=== PATIENT | female | born 1990 | race African-American/Black ===

== ENCOUNTER 2020-03-20 15:40 | Emergency (ER) | payer OTHER ==
[~2020-03-20] VITALS: Ht 167.6 cm; Wt 96.0 kg
--- NOTE | 2020-03-20 15:58 | PHYS DOC ---
Past History Past Medical History: No Pertinent History Additional Past Medical Histor: Asthma as a child Alcohol Use: Occasionally General Adult EDM: Chief Complaint: CHEST PAIN HPI: HPI: 29-year-old female presents to the ER with complaint of chest pain that is mostly with inspiration. This has been ongoing since yesterday morning. She states that she occasionally has a sensation of shortness of breath as well. Her pain is currently 5/10 and no medications have been given prior to arrival. She went to urgent care and was sent to the ER for further evaluation. She denies cough, fever, exposure to sick contacts. Reports a history of asthma as a child but no difficulty since that time. Review of Systems: Review of Systems: All other systems negative except as documented in HPI. Heart Score: HEART Score for Chest Pain: HEART Score for Chest Pain Response (Comments) Value History Slighlty/Non-Suspicious 0 ECG Normal 0 Age < 45 0 Risk Factors No Risk Factors 0 Troponin < Normal Limit 0 Total 0 Risk Factors: Risk Factors: DM, Current or recent (<one month) smoker, HTN, HLP, family history of CAD, obesity. Risk Scores: Score 0 - 3: 2.5% MACE over next 6 weeks - Discharge Home Score 4 - 6: 20.3% MACE over next 6 weeks - Admit for Clinical Observation Score 7 - 10: 72.7% MACE over next 6 weeks - Early Invasive Strategies Allergies: Allergies: Allergies Coded Allergies Type Severity Reaction Last Updated Verified shellfish derived Allergy Intermediate 03/20/20 Yes Physical Exam: PE: Constitutional: Well developed, well nourished, no acute distress, non-toxic appearance. [] HENT: Normocephalic, atraumatic, bilateral external ears normal, oropharynx moist, no oral exudates, nose normal. [] Eyes: PERRLA, EOMI, conjunctiva normal, no discharge. [] Neck: Normal range of motion, no tenderness, supple, no stridor. [] Cardiovascular:Heart rate regular rhythm, no murmur [] Lungs & Thorax: Bilateral breath sounds clear to auscultation, no reproducible chest tenderness Abdomen: Bowel sounds normal, soft, no tenderness, no masses, no pulsatile masses. [] Skin: Warm, dry, no erythema, no rash. [] Back: No tenderness, no CVA tenderness. [] Extremities: No tenderness, no cyanosis, no clubbing, ROM intact, no edema. [] Neurologic: Alert and oriented X 3, normal motor function, normal sensory function, no focal deficits noted. [] Psychologic: Affect normal, judgement normal, mood normal. [] Current Patient Data: Vital Signs: Vital Signs Date Time Temp Pulse Resp B/P (MAP) Pulse Ox O2 Delivery O2 Flow Rate FiO2 03/20/20 15:48 78 20 100 EKG: EKG: EKG shows a normal sinus rhythm without ST changes, ventricular rate of 70 and normal intervals. Radiology/Procedures: Radiology/Procedures: Chest x-ray negative per emergency physician interpretation. Course & Med Decision Making: Course & Med Decision Making Pertinent Labs and Imaging studies reviewed. (See chart for details) 1557: Patient seen for ongoing chest discomfort with inspiration mostly. Will check labs, chest x-ray. EKG is unremarkable. Hold off on aspirin for now until urine comes back. 1634: Patient's work-up is negative today. She has been given aspirin. Given her ongoing symptomatology we will start her on prednisone to decrease any inflammation in the lungs. She is recommended to follow-up with her primary care physician as needed. Claudioon Disclaimer: Dragon Disclaimer: This electronic medical record was generated, in whole or in part, using a voice recognition dictation system. Departure Departure: Impression: Primary Impression: Non-cardiac chest pain Disposition: 01 HOME/RESIDENCE PRIOR TO ADM Condition: STABLE Referrals: EDUARDO BUSTILLOS (PCP) Please follow up in 5-7 days for ongoing symptoms. Patient Instructions: Chest Pain (Nonspecific) Scripts Prednisone (PREDNISONE) 50 Mg Tablet 50 MG PO DAILY for Chest Pain for 5 Days, #5 TAB Prov: AMALIA REID DO 03/20/20 Justification of Admission: Justification of Admission: Justification of Admission Dx: N/A AMALIA REID DO Mar 20, 2020 15:58
[2020-03-20 16:12] LABS: BASO # 0.1 x10^3/uL (0.0-0.2); BASO % 1 % (0-3); EOS # 0.4 x10^3/uL (0.0-0.7); EOS % 5 % (0-3); HEMATOCRIT 39.8 % (36.0-47.0); LYMPH # 2.6 x10^3/uL (1.0-4.8); LYMPH % 34 % (24-48); MEAN CORPUSCULAR HEMOGLOBIN 28 pg (25-35); MEAN CORPUSCULAR HGB CONC 33 g/dL (31-37); MEAN CORPUSCULAR VOLUME 85 fL (79-100); MONO # 0.6 x10^3/uL (0.0-1.1); MONO % 9 % (0-9); NEUT # 3.8 x10^3uL (1.8-7.7); NEUT % 51 % (31-73); PLATELET COUNT 232 x10^3/uL (140-400); RED BLOOD COUNT 4.72 x10^6/uL (3.50-5.40); RED CELL DISTRIBUTION WIDTH 13.7 % (11.5-14.5); WHITE BLOOD COUNT 7.5 x10^3/uL (4.0-11.0)
[2020-03-20 16:17] LABS: CALCIUM 9.2 mg/dL (8.5-10.1); CREATININE 0.9 mg/dL (0.6-1.0); GFR 89.6; POTASSIUM 4.1 mmol/L (3.5-5.1)
[2020-03-20 16:29] LABS: MAGNESIUM 1.9 mg/dL (1.8-2.4)
[2020-03-20] MEDS ORDERED: ASPIRIN CHEWABLE 81 MG TABLET. PO ONE (16:30)
[2020-03-20] MEDS ORDERED: PRED50TA PO (16:37)
--- NOTE | 2020-03-20 16:37 | RAD ---
Single view of the chest. 03/20/2020 3:54 PM Indication: Reason: CHEST PAIN / Spl. Instructions: / History: Comparison: None Findings: There is no focal consolidation. There is no pleural effusion or pneumothorax. The cardiomediastinal silhouette and pulmonary vasculature are within normal limits. No acute osseous abnormalities are seen. Impression: No evidence of acute cardiopulmonary process. Electronically signed by: Haroon Suero MD (03/20/2020 4:35 PM) [id number]
[2020-03-20 16:43] VITALS: BP 123/75
--- NOTE | 2020-03-20 17:45 | EKG ---
[address] [address] Test Date: 2020-03-20 Test Time: 15:43:03 Pat Name: STEVEN OQUENDO Department: Room: Gender: F [employer] Director: ESTIVEN : 1990 Requested By: AMALIA REID Order Number: [id number] Reading MD: Measurements Intervals [place] Rate: 70 P: 44 OR: 158 QRS: 58 QRSD: 78 T: 41 QT: 334 QTc: 363 Interpretive Statements SINUS RHYTHM OTHERWISE NORMAL ECG RI6.02 No previous ECG available for comparison
== END 2020-03-20 16:55 | disposition home or self-care (01) ==
LOC: ER 15:40
DX: R07.89 Other chest pain (principal); R06.02 Shortness of breath; J45.909 Unspecified asthma, uncomplicated; Z91.013 Allergy to seafood
CPT/HCPCS: 36415; 71045; 80048; 81025; 83735; 83874; 83880; 84484; 85025; 85610; 85730; 93005; 99285

== ENCOUNTER 2020-09-08 09:54 | Emergency (ER) | payer OTHER ==
[~2020-09-08] VITALS: Ht 167.6 cm; Wt 99.0 kg
[~2020-09-08 09:54] MED LIST: PRED50TA PO
--- NOTE | 2020-09-08 10:36 | PHYS DOC ---
Past History Past Medical History: Asthma Additional Past Medical Histor: Asthma as a child Past Surgical History: No Surgical History Alcohol Use: None General Adult EDM: Chief Complaint: SHORTNESS OF BREATH HPI: HPI: Patient is a 30-year-old G2, P1 at 27 weeks gestational age coming in for shortness of breath. Patient is recovering from a cold so has had a intermittently productive cough and some congestion. Patient was tested for COVID-19 5 days ago which was negative. Patient states last night she had difficulty sleeping because she felt she could not catch her breath and she was complaining of chest tightness. Has substernal chest pain is worse taking a deep breath. Denies any lower extremity edema. Patient has a history of asthma as a child but has not had problems since she has been in adult. Denies any fevers, vomiting, diarrhea. Denies any personal or family history of blood clots. Review of Systems: Review of Systems: All other systems within normal limits except for as noted in the HPI Allergies: Allergies: Allergies Coded Allergies Type Severity Reaction Last Updated Verified shellfish derived Allergy Intermediate 03/20/20 Yes Physical Exam: PE: Constitutional: Well developed, well nourished, no acute distress, non-toxic appearance. [] HENT: Normocephalic, atraumatic, bilateral external ears normal, nose normal. [] Eyes: PERRLA, conjunctiva normal, no discharge. [] Neck: No rigidity, supple, no stridor. [] Cardiovascular: Tachycardic, regular rhythm, brisk cap refill [] Lungs & Thorax: Non labored symmetric respirations, no tachypnea or respiratory distress. Lungs clear to auscultation without wheezing, chest pain not reproducible with palpation [] Abdomen: Soft, nondistended. Skin: Warm, dry, no erythema, no rash. [] Back: Unremarkable Extremities: No deformities, range of motion grossly intact, no lower extremity edema [] Neurologic: Alert and oriented X 3, no focal deficits noted. [] Psychologic: Affect normal, judgement normal, mood normal. [] Current Patient Data: Vital Signs: Vital Signs Date Time Temp Pulse Resp B/P (MAP) Pulse Ox O2 Delivery O2 Flow Rate FiO2 09/08/20 10:01 97.8 117 16 131/74 (93) 96 Room Air EKG: EKG: Sinus tachycardia, heart rate 104 bpm, normal axis, no ST elevation depression, no ectopy, Q waves anteriorly inversion in lead III. Other T waves are unremarkable [] Radiology/Procedures: Radiology/Procedures: CTA CHEST INDICATION: pe, tachy, dyspnea, 27 weeks preg double shielded. PT 27 WEEKS Comparison: None. TECHNIQUE: Following the uneventful administration of intravenous contrast, 75 cc Omnipaque 350, axial CT sections were obtained through the lungs and upper abdomen. Multiplanar reconstructions and MIP images were obtained. PQRS compliance statement: One or more of the following individualized dose reduction techniques were utilized for this examination: 1. Automated exposure control 2. Adjustment of the mA and/or kV according to patient size 3. Use of iterative reconstruction technique FINDINGS: Pulmonary arteries: No evidence pulmonary thromboembolic disease. Lungs and Airways: No pulmonary mass or consolidation. No abnormality of the central airways. Pleura: The pleural spaces are normal. Heart and Mediastinum: The visualized thyroid is normal in size and attenuation. No axillary or supraclavicular lymphadenopathy. No mediastinal, hilar or retrocrural lymphadenopathy. The heart and pericardium are within normal limits. The great vessels of the thorax are normal. Residual thymic tissue. Abdomen: Limited images through the upper abdomen show no abnormality of the visualized organs. Bones and Soft Tissues: The visualized bones and chest wall soft tissues are within normal limits. IMPRESSION: 1. No evidence of pulmonary thromboembolic disease. 2. No pulmonary mass or consolidation PA and lateral views of the chest. Comparison: 03/20/2020. Indication: Dyspnea for one day Findings: The heart size is normal. No pneumothorax or effusion. No air space or interstitial disease. The bony structures are intact. Impression: 1. No acute cardiopulmonary process. [] Heart Score: C/O Chest Pain: No HEART Score for Chest Pain: HEART Score for Chest Pain Response (Comments) Value History Slighlty/Non-Suspicious 0 ECG Nonspecific Repolarizatio 1 Age < 45 0 Risk Factors No Risk Factors 0 Troponin < Normal Limit 0 Total 1 Risk Factors: Risk Factors: DM, Current or recent (<one month) smoker, HTN, HLP, family history of CAD, obesity. Risk Scores: Score 0 - 3: 2.5% MACE over next 6 weeks - Discharge Home Score 4 - 6: 20.3% MACE over next 6 weeks - Admit for Clinical Observation Score 7 - 10: 72.7% MACE over next 6 weeks - Early Invasive Strategies Course & Med Decision Making: Course & Med Decision Making Pertinent Labs and Imaging studies reviewed. (See chart for details) Discussed risk of imaging with patient. She agrees to do CTA with abdominal shielding. Patient does not have any swelling or pain in her extremities so we will not proceed with ultrasound. [] Dragon Disclaimer: Dragon Disclaimer: This electronic medical record was generated, in whole or in part, using a voice recognition dictation system. Departure Departure: Impression: Primary Impression: Bronchitis Disposition: 01 DC HOME SELF CARE/HOMELESS Condition: STABLE Referrals: VERONICA DELVALLE MD (PCP) Patient Instructions: Shortness of Breath Scripts Prednisone (PREDNISONE) 50 Mg Tablet 1 TAB PO DAILY for steroid for 5 Days, #5 TAB You received this medication in the emergency room today. You will starting your next dose tomorrow. Prov: JOSETTE MONTES MD 09/08/20 JOSETTE MONTES MD Sep 08, 2020 10:36
--- NOTE | 2020-09-08 10:56 | RAD ---
PA and lateral views of the chest. Comparison: 03/20/2020. Indication: Dyspnea for one day Findings: The heart size is normal. No pneumothorax or effusion. No air space or interstitial disease. The bon y structures are intact. Impression: 1. No acute cardiopulmonary process. Electronically signed by: Alexis Mason MD (09/08/2020 10:54 AM) [id number]
--- NOTE | 2020-09-08 11:17 | EKG ---
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
[2020-09-08 11:36] LABS: CALCIUM 8.8 mg/dL (8.5-10.1); CREATININE 0.6 mg/dL (0.6-1.0); POTASSIUM 3.8 mmol/L (3.5-5.1)
[2020-09-08 11:50] LABS: ALBUMIN 2.7 g/dL (3.4-5.0); ALBUMIN/GLOBULIN RATIO 0.6 (1.0-1.7); MAGNESIUM 1.8 mg/dL (1.8-2.4); TOTAL BILIRUBIN 0.1 mg/dL (0.2-1.0); TOTAL PROTEIN 6.9 g/dL (6.4-8.2)
[2020-09-08 12:01] VITALS: BP 116/84
[2020-09-08] MEDS ORDERED: IV NORMAL SALINE 1,000ML 1,000 ML IV ONE (12:15)
[2020-09-08] MEDS ORDERED: IOHEXOL 350 MG/ML 100 ML VIAL. IV ONE (12:15)
--- NOTE | 2020-09-08 12:59 | RAD ---
CTA CHEST INDICATION: pe, tachy, dyspnea, 27 weeks preg double shielded. PT 27 WEEKS Comparison: None. TECHNIQUE: Following the uneventful administration of intravenous contrast, 75 cc Omnipaque 350, axia l CT sections were obtained through the lungs and upper abdomen. Multiplanar reconstructions and MIP images were obtained. PQRS compliance statement: One or more of the following individualized dose reduction techniques were utilized for this examinat ion: 1. Automated exposure control 2. Adjustment of the mA and/or kV according to patient size 3. Use of iterative reconstruction technique FINDINGS: Pulmonary arteries: No evidence pulmonary thromboembolic disease. Lungs and Airways: No pulmonary mass or consolidation. No abnormality of the central airways. Pleura: The pleural spaces are normal. Heart and Mediastinum: The visualized thyroid is normal in size and attenuation. No axillary or supra clavicular lymphadenopathy. No mediastinal, hilar or retrocrural lymphadenopathy. The heart and peric ardium are within normal limits. The great vessels of the thorax are normal. Residual thymic tissue. Abdomen: Limited images through the upper abdomen show no abnormality of the visualized organs. Bones and Soft Tissues: The visualized bones and chest wall soft tissues are within normal limits. IMPRESSION: 1. No evidence of pulmonary thromboembolic disease. 2. No pulmonary mass or consolidation Electronically signed by: Bib Ulloa MD (09/08/2020 12:56 PM) [id number]
[2020-09-08 13:05] LABS: COLOR,URINE YELLOW
[2020-09-08 13:06] LABS: BACTERIA,URINE FEW /HPF (0-FEW); BILIRUBIN,URINE NEG (NEG); CLARITY,URINE HAZY; GLUCOSE,URINE NEG (NEG); NITRITE,URINE NEG (NEG); SQUAMOUS EPITHELIAL CELL,UR MANY /LPF; UROBILINOGEN,URINE 0.2 mg/dL (0.2 mg/dL)
[2020-09-08] MEDS ORDERED: PRED50TA PO (13:21)
== END 2020-09-08 13:35 | disposition home or self-care (01) ==
LOC: ER 09:54
DX: O99.512 Diseases of the respiratory system complicating pregnancy, second trimester (principal); J45.909 Unspecified asthma, uncomplicated; R06.02 Shortness of breath; R05 Cough; Z91.013 Allergy to seafood; Z3A.27 27 weeks gestation of pregnancy
CPT/HCPCS: 36415; 71046; 71275; 80053; 81001; 83735; 83880; 84484; 85379; 93005; 96360; 99285; J7030; Q9967